=== PATIENT | female | born 1985 | race Caucasian/White ===

== ENCOUNTER 2023-04-24 09:12 | Day surgery (SDC) | payer OTHER ==
[~2023-04-24] VITALS: Ht 175.3 cm; Wt 81.6 kg
[~2023-04-24 09:12] MED LIST: LR 1,000 ML IV SCH; Ondansetron 4 MG/2 ML VIAL IV PRN
[2023-04-24 10:05] VITALS: BP 154/100; PULSE 64; TEMP 98.1
[2023-04-24] MEDS ORDERED: MAGNESIUM500 MG PO (10:08)
[2023-04-24] MEDS ORDERED: PROZAC 20MG20 MG PO (10:08)
[2023-04-24] MEDS ORDERED: Midazolam 2 MG/2 ML VIAL ONE (11:01)
[2023-04-24] MEDS ORDERED: Lidocaine PF 2% (20 MG/ML) 5 ML VIAL ONE (11:18)
[2023-04-24] MEDS ORDERED: Ondansetron 4 MG/2 ML VIAL ONE (11:48)
[2023-04-24 11:55] VITALS: BP 110/71; PULSE 61; TEMP 98.4
[2023-04-24 12:10] VITALS: BP 110/79; PULSE 63
[2023-04-24 12:25] VITALS: BP 114/69; PULSE 62
[2023-04-24 12:40] VITALS: BP 122/71; PULSE 65
--- NOTE | 2023-04-24 15:58 | NUR ---
[id number]: PT TO [facility] 5 FROM ENDO S/P EGD/COLONOSCOPY WITH BIOPSIES AND POLYPECTOMIES A&O, PLACED ON MONITOR, VSS ON RA RECEIVED REPORT AND ASSUMED CARE OF PT FROM HARSH NOGUERA FRIEND/RIDE AT BEDSIDE PROVIDED FOOD/FLUIDS, TOLERATING WELL DR ELIZABETH IN TO SPEAK WITH PT PT HAS REMAINED A&O, NAD, VSS ON RA, TOLERATING PO, IS WITHOUT SIGNIFICANT COMPLAINT, WITH STEADY GAIT THRU OUT STAY IV D/C'D. D/C INSTRUCTIONS, ANY FOLLOW UP REVIEWED AND HANDED TO PT. ALL QUESTIONS AND CONCERNS ADDRESSED TO PT SATISFACTION. TAKEN TO EXIT VIA W/C WITH ALL BELONGINGS AND PAPERWORK IN HAND, ASSISTED INTO PASSENGER SEAT OF POV. FRIEND TO DRIVE HOME.
== END 2023-04-24 12:50 | disposition home or self-care (01) ==
LOC: SDCO 09:12
DX: D12.3 Benign neoplasm of transverse colon (principal); K29.50 Unspecified chronic gastritis without bleeding; K21.9 Gastro-esophageal reflux disease without esophagitis; Z90.49 Acquired absence of other specified parts of digestive tract
CPT/HCPCS: J2250; J2405; J2704; J7120